=== PATIENT | male | born 1930 | race African-American/Black ===

== ENCOUNTER 2016-12-30 17:24 | Emergency (ER) | payer MEDICARE ==
[~2016-12-30] VITALS: Ht 175.3 cm; Wt 103.1 kg
[2016-12-30] MEDS ORDERED: KETOROLAC 30 MG/1 ML ONE (17:43)
[2016-12-30] MEDS ORDERED: KETOROLAC 30 MG/1 ML IM ONE (18:00)
[2016-12-30] MEDS ORDERED: PLEASE ENTER HEIGHT AND WEIGHT AND ALLERGIES MC SCH (18:00)
[2016-12-30 20:43] VITALS: BP 186/90
== END 2016-12-30 21:59 ==
LOC: ED 21:52
DX: S43.402A Unspecified sprain of left shoulder joint, initial encounter (principal); M54.5 Low back pain; Z98.890 Other specified postprocedural states; W05.2XXA Fall from non-moving motorized mobility scooter, initial encounter; Y93.55 Activity, bike riding; Y92.488 Other paved roadways as the place of occurrence of the external cause; Y99.8 Other external cause status
CPT/HCPCS: 72110; 72125; 73030; 73502; 73564; 73610; 96372; 99284; J1885